=== PATIENT | male | born 1940 | race Caucasian/White ===

== ENCOUNTER 2017-03-05 10:20 | Emergency (ER) | payer MEDICARE ==
--- NOTE | 2017-03-05 10:59 | UC ---
Skin Complaint HPI - HPI Summary HPI Summary: on coumadin ---ran in to the corner of a wall and got a bruise on left upper arm.now bruise in spreading down arm and is greenish in color---last INR 03/02 was 2.3 not currently or recently on antibiotics - History of Current Complaint Chief Complaint: UCSkin Time Seen by Provider: 03/05/17 10:53 Stated Complaint: BRUISE ON ARM Hx Obtained From: Patient Onset/Duration: Sudden Onset, Lasting Days - 3, Still Present Timing: Constant Onset Severity: Mild Current Severity: None Location: Discrete - left upper arm Aggravating: Nothing Alleviating: Nothing Associated Signs & Symptoms: Positive: Negative - Allergy/Home Medications Allergies/Adverse Reactions: Allergies Allergy/AdvReac Type Severity Reaction Status Date / Time Fentanyl AdvReac Intermediate GI Upset Verified 03/05/17 10:59 Midazolam [From Versed] AdvReac Intermediate GI Upset Verified 03/05/17 10:59 [facility] - NO MRI s Allergy NO MRIs - Uncoded 03/05/17 10:59 UNSAFE Home Medications: Home Medications Aspirin 81 mg PO 03/05/17 [History] Atorvastatin* [Lipitor*] 10 mg PO 1700 03/05/17 [History Confirmed 03/05/17] Review of Systems Constitutional: Negative Skin: Bruising - resolving bruise left upper arm---anterior Eyes: Negative ENT: Negative Respiratory: Negative Cardiovascular: Negative Gastrointestinal: Negative Genitourinary: Negative Motor: Negative Neurovascular: Negative Musculoskeletal: Negative Neurological: Negative Psychological: Negative All Other Systems Reviewed And Are Negative: Yes PMH/Surg Hx/FS Hx/Imm Hx Previously Healthy: No Endocrine History: Dyslipidemia Cardiovascular History: Cardiac Disease, Pacemaker/ICD, Myocardial Infarction - Surgical History Surgical History: Yes - Family History Known Family History: Positive: None Family History: no reported cardiovascular issues in family lineage - Social History Occupation: Retired Lives: With Family Alcohol Use: None Substance Use Type: None Smoking Status (MU): Never Smoked Tobacco Physical Exam Triage Information Reviewed: Yes Appearance: Well-Appearing, No Pain Distress, Well-Nourished Vital Signs Reviewed: Yes Eye Exam: Normal Eyes: Positive: Conjunctiva Clear ENT Exam: Normal ENT: Positive: Normal ENT inspection, Hearing grossly normal, Pharynx normal, TMs normal. Negative: Nasal congestion, Nasal drainage, Trismus, Muffled/ hoarse voice Dental Exam: Normal Neck exam: Normal Neck: Positive: Supple, Nontender Respiratory Exam: Normal Respiratory: Positive: Chest non-tender, Lungs clear, Normal breath sounds, No respiratory distress, No accessory muscle use Cardiovascular Exam: Normal Cardiovascular: Positive: RRR, Pulses Normal, Brisk Capillary Refill Abdominal Exam: Normal Musculoskeletal Exam: Normal Musculoskeletal: Positive: Strength Intact, ROM Intact, No Edema Neurological Exam: Normal Neurological: Positive: Alert, Muscle Tone Normal Psychological Exam: Normal Skin Exam: Normal Skin: Positive: Other - bruising anterior upper left arm Course/Dx - Course Course Of Treatment: follow with MD as planned - Differential Diagnoses - Skin Complaint Differential Diagnoses: Abscess, Cellulitis, Other - bruising - Diagnoses Provider Diagnoses: Bruising left upper arm Discharge - Discharge Plan Condition: Stable Disposition: HOME Patient Education Materials: Contusion in Adults (ED) Referrals: Brenden Hernandez MD [Primary Care Provider] - (for routine PT/INR check)
[2017-03-05 11:05] VITALS: BP 112/75
== END 2017-03-05 11:10 | disposition home or self-care (01) ==
LOC: UCEAST 10:20
DX: S40.022A Contusion of left upper arm, initial encounter (principal); W22.01XA Walked into wall, initial encounter; Y93.9 Activity, unspecified; Y92.9 Unspecified place or not applicable; Y99.9 Unspecified external cause status; Z79.01 Long term (current) use of anticoagulants; Z95.0 Presence of cardiac pacemaker; I51.9 Heart disease, unspecified; I25.2 Old myocardial infarction
CPT/HCPCS: 99211; G0463

== ENCOUNTER 2017-03-14 10:42 | Emergency (ER) | payer MEDICARE ==
[2017-03-14] MEDS ORDERED: NS 0.9% 1000 ML* 2,000 ML IV ONE (10:58)
[2017-03-14] MEDS ORDERED: Ondansetron INJ* 2 MG/ML VIAL IV ONE (10:58)
[2017-03-14] MEDS ORDERED: Meclizine TAB* 12.5 MG PO ONE (10:58)
[2017-03-14 11:34] LABS: Hematocrit 48 % (42-52); Hemoglobin 16.2 g/dl (14.0-18.0); Mean Corpuscular HGB Conc 34 g/dl (31-36); Mean Corpuscular Hemoglobin 33 pg (27-31); Mean Corpuscular Volume 98 fL (80-94); Mean Platelet Volume 8 um3 (7.4-10.4); Red Blood Count 4.87 10^6/ul (4.0-5.4); Red Cell Distribution Width 13 % (10.5-15); White Blood Count 9.9 10^3/ul (3.5-10.8)
[2017-03-14 11:46] LABS: Albumin 3.7 g/dL (3.2-5.2); BUN/Creatinine Ratio 19.7 (8-20); C Reactive Protein 3.84 mg/L (< 5.00); Calcium 9.2 mg/dL (8.6-10.3); EGFR African American 138.7 (>60); EGFR Non-African American 107.9 (>60); Globulin 2.5 g/dL (2-4); Magnesium 1.7 mg/dL (1.9-2.7); Potassium 3.9 mmol/L (3.5-5.0); Total Bilirubin 2.5 mg/dL (0.2-1.0); Total Protein 6.2 g/dL (6.4-8.9)
[2017-03-14 11:51] LABS: Urine Bilirubin Negative (Negative); Urine Glucose Negative (Negative); Urine Nitrite Negative (Negative)
[2017-03-14 12:12] LABS: TSH (Thyroid Stimulating Horm) 2.64 mcIU/mL (0.34-5.60)
--- NOTE | 2017-03-14 12:15 | RAD ---
Indication: Vertigo. CT of the brain was performed without IV contrast. Ventricular structures are midline. No midline shift is noted. Central and cortical atrophy is noted. There is no evidence of intracranial mass or hemorrhage. No other high or low density lesions are identified. Mastoid air cells and paranasal sinuses are otherwise unremarkable. IMPRESSION: No intracranial mass or hemorrhage is noted.
[2017-03-14 12:18] LABS: Digoxin 0.6 ng/ml (0.8-2.0)
--- NOTE | 2017-03-14 13:22 | RAD ---
INDICATION: Dizziness COMPARISON: January 20, 2015 TECHNIQUE: An AP portable view obtained at 1154 hours is submitted. FINDINGS: Bones/Soft Tissues: There are no acute bony findings. There is interval sternotomy. There is left-sided cardiac pacemaker with revision. Cardiomediastinal: The cardiomediastinal silhouette is normal. Lungs: There are no infiltrates. Pleura: There are no pleural effusions. Other: None IMPRESSION: NO ACTIVE DISEASE.
[2017-03-14 13:27] LABS: Troponin I 0.01 ng/mL (<0.04)
--- NOTE | 2017-03-14 14:51 | ED ---
Eric Douglas Angela, scribed for Dameon Acosta MD on 03/14/17 at 1052 . Dizziness - HPI Summary HPI Summary: Pt is a 76 y/o M BIBA who presents to ED c/o dizziness. Sx began at 0400 this morning and has been constant and worsening since onset. Dizziness characterized as room spinning, aggravated by turning to the left side and sitting up, alleviated by laying flat. Additionally c/o nausea and decreased appetite secondary to nausea. Denies vomiting, CP, SOB, KAPLAN, weakness, numbness, ear pain, rhinorrhea and abd pain. Confirms good fluid intake. Pt presents to ED today as sx have not improved. Takes Coumadin and 81 mg ASA. PMHx vertigo. - History Of Current Complaint Chief Complaint: EDDizziness Stated Complaint: DIZZINESS Hx Obtained From: Patient, EMS Onset/Duration: Still Present Timing: Constant Character: Room Spinning Aggravating Factor(s): Position Change - Sitting up, Other - Turning to the left side Alleviating Factor(s): Lying Down Associated Signs And Symptoms: Positive: Nausea. Negative: Vomiting, Chest Pain , SOB - Allergies/Home Medications Allergies/Adverse Reactions: Allergies Allergy/AdvReac Type Severity Reaction Status Date / Time Fentanyl AdvReac Intermediate GI Upset Verified 03/05/17 10:59 Midazolam [From Versed] AdvReac Intermediate GI Upset Verified 03/05/17 10:59 [facility] - NO MRI s Allergy NO MRIs - Uncoded 03/05/17 10:59 UNSAFE Home Medications: Home Medications Digoxin TAB* [Lanoxin TAB*] 0.125 mg PO DAILY 03/14/17 [History Confirmed ] Magnesium Oxide TAB* [MagOx 400 TAB*] 250 mg PO DAILY 03/14/17 [History Confirmed 03/14/17] PMH/Surg Hx/FS Hx/Imm Hx Cardiovascular History: Reports: Hx Atrial Fibrillation, Hx Hypertension, Hx Pacemaker/ICD - [facility] - NO MRIs Neurological History: Reports: Other Neuro Impairments/Disorders - Vertigo - Surgical History Surgery Procedure, Year, and Place: Mitral valve repair Infectious Disease History: No Infectious Disease History: Denies: Traveled Outside the [place] in Last 30 Days - Family History Known Family History: Negative: Cardiac Disease Family History: no reported cardiovascular issues in family lineage - Social History Alcohol Use: None Substance Use Type: Reports: None Smoking Status (MU): Never Smoked Tobacco Review of Systems Negative: Ear Ache, Nasal Discharge Negative: Chest Pain Negative: Shortness Of Breath Positive: Nausea, Other - Decreased appetite secondary to nausea. Negative: Abdominal Pain, Vomiting Neurological: Other - POSITIVE: Dizziness Negative: Headache, Weakness, Numbness All Other Systems Reviewed And Are Negative: Yes Physical Exam - Summary Physical Exam Summary: General: well-appearing, no pain distress Skin: warm, color reflects adequate perfusion, dry Head: normal Eyes: EOMI, LALY, lateral nystagmus ENT: Cerumen impaction in the R ear Neck: supple, nontender Respiratory: CTA, breath sounds present Cardiovascular: RRR Abdomen: soft, nontender Bowel: present Musculoskeletal: normal, strength/ROM intact Neurological: normal, sensory/motor intact, A&O x3 Psychological: affect/mood appropriate GCS: 15 Triage Information Reviewed: Yes Vital Signs On Initial Exam: Temperature: 97.6 Pulse rate: 81 Blood pressure: 149/90 Vital Signs Reviewed: Yes Diagnostics - Vital Signs Vital Signs Temp Pulse Resp BP Pulse Ox 03/14/17 14:00 81 162/79 97 03/14/17 13:30 86 159/94 99 03/14/17 13:00 83 22 149/97 100 03/14/17 12:54 84 22 145/94 100 03/14/17 12:00 84 18 99 03/14/17 11:30 88 22 151/84 98 03/14/17 11:29 89 160/86 03/14/17 11:27 92 23 160/86 98 03/14/17 11:25 83 20 165/100 99 03/14/17 11:00 82 19 142/93 99 03/14/17 10:50 97.6 F 82 18 149/90 98 03/14/17 10:48 149/90 - Laboratory Lab Results: Lab Results 03/14/17 03/14/17 03/14/17 Range/Units 11:11 11:11 11:11 WBC 9.9 (3.5-10.8) 10^3/ul RBC 4.87 (4.0-5.4) 10^6/ul Hgb 16.2 (14.0-18.0) g/dl Hct 48 (42-52) % MCV 98 H (80-94) fL MCH 33 H (27-31) pg MCHC 34 (31-36) g/dl RDW 13 (10.5-15) % Plt Count 178 (150-450) 10^3/ul MPV 8 (7.4-10.4) um3 Neut % (Auto) 86.9 H (38-83) % Lymph % (Auto) 5.6 L (25-47) % [place] % (Auto) 6.0 (1-9) % Eos % (Auto) 0.3 (0-6) % Baso % (Auto) 1.2 (0-2) % Absolute Neuts (auto) 8.6 H (1.5-7.7) 10^3/ul Absolute Lymphs (auto) 0.6 L (1.0-4.8) 10^3/ul Absolute Monos (auto) 0.6 (0-0.8) 10^3/ul Absolute Eos (auto) 0 (0-0.6) 10^3/ul Absolute Basos (auto) 0.1 (0-0.2) 10^3/ul Absolute Nucleated RBC 0 10^3/ul Nucleated RBC % 0 INR (Anticoag Therapy) 1.80 H (0.89-1.11) APTT 37.5 H (26.0-36.3) seconds Sodium (133-145) mmol/L Potassium (3.5-5.0) mmol/L Chloride (101-111) mmol/L Carbon Dioxide (22-32) mmol/L Anion Gap (2-11) mmol/L BUN (6-24) mg/dL Creatinine (0.67-1.17) mg/dL Est GFR ( Amer) (>60) Est GFR (Non-Af Amer) (>60) BUN/Creatinine Ratio (8-20) Glucose (70-100) mg/dL Lactic Acid (0.5-2.0) mmol/L Calcium (8.6-10.3) mg/dL Magnesium (1.9-2.7) mg/dL Total Bilirubin (0.2-1.0) mg/dL AST (13-39) U/L ALT (7-52) U/L Alkaline Phosphatase (34-104) U/L Troponin I (<0.04) ng/mL C-Reactive Protein (< 5.00) mg/L B-Natriuretic Peptide 300 H ( - 100) pg/mL Total Protein (6.4-8.9) g/dL Albumin (3.2-5.2) g/dL Globulin (2-4) g/dL Albumin/Globulin Ratio (1-3) Lipase (11.0-82.0) U/L TSH (0.34-5.60) mcIU/mL Urine Color Urine Appearance Urine pH (5-9) Ur Specific [place] (1.010-1.030) Urine Protein (Negative) Urine Ketones (Negative) Urine Blood (Negative) Urine Nitrate (Negative) Urine Bilirubin (Negative) Urine Urobilinogen (Negative) Ur Leukocyte Esterase (Negative) Urine Glucose (Negative) Digoxin (0.8-2.0) ng/ml 03/14/17 03/14/17 03/14/17 Range/Units 11:11 11:11 11:40 WBC (3.5-10.8) 10^3/ul RBC (4.0-5.4) 10^6/ul Hgb (14.0-18.0) g/dl Hct (42-52) % MCV (80-94) fL MCH (27-31) pg MCHC (31-36) g/dl RDW (10.5-15) % Plt Count (150-450) 10^3/ul MPV (7.4-10.4) um3 Neut % (Auto) (38-83) % Lymph % (Auto) (25-47) % [place] % (Auto) (1-9) % Eos % (Auto) (0-6) % Baso % (Auto) (0-2) % Absolute Neuts (auto) (1.5-7.7) 10^3/ul Absolute Lymphs (auto) (1.0-4.8) 10^3/ul Absolute Monos (auto) (0-0.8) 10^3/ul Absolute Eos (auto) (0-0.6) 10^3/ul Absolute Basos (auto) (0-0.2) 10^3/ul Absolute Nucleated RBC 10^3/ul Nucleated RBC % INR (Anticoag Therapy) (0.89-1.11) APTT (26.0-36.3) seconds Sodium 135 (133-145) mmol/L Potassium 3.9 (3.5-5.0) mmol/L Chloride 105 (101-111) mmol/L Carbon Dioxide 19 L (22-32) mmol/L Anion Gap 11 (2-11) mmol/L BUN 14 (6-24) mg/dL Creatinine 0.71 (0.67-1.17) mg/dL Est GFR ( Amer) 138.7 (>60) Est GFR (Non-Af Amer) 107.9 (>60) BUN/Creatinine Ratio 19.7 (8-20) Glucose 122 H (70-100) mg/dL Lactic Acid 1.8 (0.5-2.0) mmol/L Calcium 9.2 (8.6-10.3) mg/dL Magnesium 1.7 L (1.9-2.7) mg/dL Total Bilirubin 2.50 H (0.2-1.0) mg/dL AST 19 (13-39) U/L ALT 22 (7-52) U/L Alkaline Phosphatase 62 (34-104) U/L Troponin I 0.01 (<0.04) ng/mL C-Reactive Protein 3.84 (< 5.00) mg/L B-Natriuretic Peptide ( - 100) pg/mL Total Protein 6.2 L (6.4-8.9) g/dL Albumin 3.7 (3.2-5.2) g/dL Globulin 2.5 (2-4) g/dL Albumin/Globulin Ratio 1.5 (1-3) Lipase 10 L (11.0-82.0) U/L TSH 2.64 (0.34-5.60) mcIU/mL Urine Color Yellow Urine Appearance Clear Urine pH 6.0 (5-9) Ur Specific [place] 1.012 (1.010-1.030) Urine Protein Negative (Negative) Urine Ketones 1+ H (Negative) Urine Blood Negative (Negative) Urine Nitrate Negative (Negative) Urine Bilirubin Negative (Negative) Urine Urobilinogen Negative (Negative) Ur Leukocyte Esterase Negative (Negative) Urine Glucose Negative (Negative) Digoxin 0.6 L (0.8-2.0) ng/ml Result Diagrams: 03/14/17 11:11 03/14/17 11:11 Lab Statement: Any lab studies that have been ordered have been reviewed, and results considered in the medical decision making process. - Radiology Chest XR Xray Interpretation: No Acute Changes - IMPRESSION: NO ACTIVE DISEASE Radiology Interpretation Completed By: Radiologist - CT Brain CT CT Interpretation: No Acute Changes - IMPRESSION: No intracranial mass or hemorrhage is noted. CT Interpretation Completed By: Radiologist - EKG 1053 Cardiac Rate: NL - 85 bpm EKG Interpretation: Ventricular pace at 85 bpm, no STEMI Re-Evaluation - Re-Evaluation First Eval Re-Evaluation Time: 13:29 Comment: Discussed the radiology results with the pt. Second Eval Re-Evaluation Time: 13:54 Change: Improved - Pt's symptoms have improved but he is still feeling dizzy. Nurses will check his ambulation. Dizzy Course/Dx - Course Course Of Treatment: DISCUSSED WITH DR SULLIVAN. HEAD CT NORMAL WITH SX STARTING MORE THAN 24 HOURS AGO MAKING CVA UNLIKELY. SX IMPROVED IN ED WITH MECLIZINE AND IVF. AMBLE TO AMBULATE AT DISCHARGE. SX INITIALLY WORSE WITH HEAD MOVEMENT. DISCUSSED RESULTS WITH PATIENT/. THEY FEEL COMFORTABLE GOING HOME WITH PO MECLIZINE AND PMD F/U; RETURN TO ED IF WORSE. - Diagnoses Provider Diagnoses: Vertigo, Dizziness - Provider Notifications Discussed Care Of Patient With: Moo Sullivan Time Discussed With Above Provider: 12:19 Instructed by Provider To: Other - He stated that a CT is ok. Discharge - Discharge Plan Condition: Stable Disposition: HOME Prescriptions: Meclizine HCl [Meclizine 25] 25 mg PO Q6HR PRN #15 tab PRN Reason: Dizziness Patient Education Materials: Vertigo (ED), Dizziness (ED) Referrals: Brenden Hernandez MD [Primary Care Provider] - Additional Instructions: FOLLOW UP WITH YOUR DOCTOR. TAKE MECLIZINE 25MG EVERY 6 HOURS NEEDED FOR DIZZINESS. RETURN TO THE EMERGENCY DEPARTMENT FOR ANY WORSENING OF YOUR CONDITION; CONTINUED DIZZINESS, WEAKNESS, NUMBNESS, DIFFICULTY WITH VISION OR SPEECH, YOU FEEL ILL OR QUESTIONS OR CONCERNS. The documentation as recorded by the Eric cooley Angela accurately reflects the service I personally performed and the decisions made by me, Dameon Acosta MD.
[2017-03-14 15:06] VITALS: BP 160/89
== END 2017-03-14 15:05 | disposition home or self-care (01) ==
LOC: ED 10:42
DX: R42 Dizziness and giddiness (principal)
CPT/HCPCS: 36415; 70450; 71010; 80053; 80162; 81003; 83605; 83690; 83735; 83880; 84443; 84484; 85025; 85610; 85730; 86140; 93005; 99284; A9270-GY; J2405

== ENCOUNTER 2018-06-14 10:32 | Emergency (ER) | payer MEDICARE ==
--- NOTE | 2018-06-14 12:14 | UC ---
Laceration HPI - HPI Summary HPI Summary: 78 y/o male presents to the urgent care c/o cut left thumb with a knife in the kitchen - History Of Current Complaint Chief Complaint: UCLaceration Stated Complaint: hand injury Time Seen by Provider: 06/14/18 12:13 Hx Obtained From: Patient Laceration Location: Finger - left thumb Mechanism Of Injury: Sharp Trauma - avulse tip of the left thumb Onset/Duration: Sudden Onset - yesterday afternoon around 1800PM, Still Present Severity: Mild Pain Intensity: 1 - at touch Pain Scale Used: 0-10 Numeric Aggravating Factors: Nothing - Allergies/Home Medications Allergies/Adverse Reactions: Allergies Allergy/AdvReac Type Severity Reaction Status Date / Time fentanyl Allergy GI Upset Verified 12/27/17 13:19 midazolam [From Versed] Allergy GI Upset Verified 12/27/17 13:19 [facility] - NO MRI s Allergy NO MRIs - Uncoded 03/05/17 10:59 UNSAFE Home Medications: Home Medications Latanoprost/Pf [Latanoprost 0.005% Eye Drop] 1 % BOTH EYES DAILY 06/14/18 [ History Confirmed 06/14/18] PMH/Surg Hx/FS Hx/Imm Hx Previously Healthy: Yes Endocrine History: Dyslipidemia Cardiovascular History: Hypertension, Atrial Fibrillation Other Cardiovascular History: MV repair - Surgical History Surgical History: Yes Surgery Procedure, Year, and Place: Mitral valve repair - Family History Known Family History: Positive: Cardiac Disease Family History: no reported cardiovascular issues in family lineage - Social History Occupation: Retired Lives: With Family Alcohol Use: None Substance Use Type: None Smoking Status (MU): Never Smoked Tobacco - Immunization History Hx Tetanus, Diphtheria Vaccination: No - unsure Review of Systems All Other Systems Reviewed And Are Negative: Yes Constitutional: Positive: Negative Skin: Positive: Other - avulse laceration over the tip of left thumb Eyes: Positive: Negative ENT: Positive: Negative Respiratory: Positive: Negative Cardiovascular: Positive: Negative Gastrointestinal: Positive: Negative Genitourinary: Positive: Negative Motor: Positive: Negative Neurovascular: Positive: Negative Musculoskeletal: Positive: Other: - left thumb pain s/p laceration Neurological: Positive: Negative Psychological: Positive: Negative Is Patient Immunocompromised?: No Physical Exam - Summary Physical Exam Summary: Vital Signs Reviewed: Yes General: well developed, well nourished male sitting in the examining table w/o any apparent distress Eye Exam: Normal Eyes: Positive: Conjunctiva Clear - PERRLA, EOMI, fundi grossly normal ENT: Positive: Normal ENT inspection, Hearing grossly normal, Pharynx normal, TMs normal Neck: Positive: Supple, Nontender, No Lymphadenopathy Respiratory: Positive: Chest non-tender, Lungs clear, Normal breath sounds, No respiratory distress Cardiovascular: Positive: RRR, No Murmur, Pulses Normal, Brisk Capillary Refill Abdomen Description: Positive: Nontender, No Organomegaly, Soft. Negative: CVA Tenderness (R), CVA Tenderness (L) Bowel Sounds: Positive: Present Musculoskeletal: Positive: Strength Intact, ROM Intact, No Edema Neurological: Positive: Alert, Muscle Tone Normal Psychological Exam: Normal Skin: Positive:tip of left first phalanx with an avulse superficial laceration about 0.9cm in size, no bleeding, no foreign body observed. mild tenderness to palpation,. FROM of LF thumb, sensation intact, capillary refill brisk, and pulses WNL. Triage Information Reviewed: Yes Vital Signs: Initial Vital Signs Temp 97 F 06/14/18 10:38 Pulse 86 06/14/18 10:38 Resp 16 06/14/18 10:38 BP 126/61 06/14/18 10:38 Pulse Ox 100 06/14/18 10:38 Laceration Repair - Laceration Repair 1 Description: Irregular - semilunar avulsed superficial laceration Laceration Size After Repair: Length (cm) - 0.9 Modified For Repair: No Cleansing Completed Via Routine Prep: Yes Irrigation With Pressure Irrigation Device: Yes Closure Material: Skin Adhesive - gel foam applied Closure Method: Single Layer Suture Of: Skin Laceration Course/Dx - Course/Dx Course Of Treatment: Pt w/ tip of left first phalanx with an avulse superficial laceration about 0.9cm in size, no bleeding on examination. LACERATION PROCEDURE NOTE: Copious irrigation was done with saline and the wound cleaned and explored. There was no FB or deep structure injury noted. Wounds cleaned saline water and then w/ Iodine swabs. Abrasion cleaned w/ sterile water and bacitracin oint applied over and then cover w/ non adhesive gauze . The skin avulsion were covered w/ Gel foam and then covered w/ sterile gauze. #4th and 5th finger immobilized and body tape together. The Pt tolerated the procedure well without adverse effects. Neurovascular intact and FROM of finger. Tdap ordered and applied by nurse. Pt Rx Bacitracin ointment and Ibuprofen PO to alleviate symptoms. Pt advised if any signs of infection develop to immediately return to the urgent care of PCP for further management and treatment. Pt understood and agreed and left the clinic ambulating A&Ox3. - Differential Dx - Laceration/Wound Differental Diagnoses: Abrasion, Avulsion, Cellulitis, Laceration, Puncture Wound, Tendon Laceration Provider Diagnoses: 1- Left thumb avulse laceration repair Discharge - Sign-Out/Discharge Documenting (check all that apply): Patient Departure - D/C home All imaging exams completed and their final reports reviewed: No Studies - Discharge Plan Condition: Stable Disposition: HOME Patient Education Materials: Laceration (ED), Acute Wound Care (ED) Referrals: Brenden Hernandez MD [Primary Care Provider] - 1 Week Additional Instructions: 1-Please keep Gelfoam in placed, . Keep wound clean and dry. Change dressing 2- You were given Tdap today.. 3-Take Ibuprofen or Tylenol PO q6-8hrs prn for pain or swelling. 4- If you develop fever or redness around your thumb please return to the Urgent care or PCP for further management - Billing Disposition and Condition Condition: STABLE Disposition: Home
[2018-06-14] MEDS ORDERED: Gelfoam 12-7 ADSORBABL SPONGE* 1 EA SPONGE TOPICAL ONE (12:46)
[2018-06-14] MEDS ORDERED: Tetan/Diph/Pertus SYR(Tdap)* 0.5 ML SYR(BOOSTRIX) use SYR IM ONE (12:47)
[2018-06-14] MEDS ORDERED: Gelfoam 12-7 ADSORBABL SPONGE* 1 EA SPONGE ONE (12:48)
[2018-06-14 13:04] VITALS: BP 138/93
== END 2018-06-14 13:08 | disposition home or self-care (01) ==
LOC: UCEAST 10:32
DX: S61.012A Laceration without foreign body of left thumb without damage to nail, initial encounter (principal); I10 Essential (primary) hypertension; Z88.4 Allergy status to anesthetic agent; Z91.048 Other nonmedicinal substance allergy status; W26.0XXA Contact with knife, initial encounter; Y92.89 Other specified places as the place of occurrence of the external cause
CPT/HCPCS: 90471; 90715; 99212; A9270-GY; G0463

== ENCOUNTER 2019-02-25 19:39 | Emergency (ER) | payer MEDICARE ==
--- NOTE | 2019-02-25 21:32 | ED ---
Lower Extremity - HPI Summary HPI Summary: Pt is a 78 y/o M presenting to the ED with a chief complaint of knee pain onset about 2 days ago. It initially started around 0000 on 02/24/19. He states on the morning of 02/25/19, at 0030, he felt a pain in his L knee that he described as an ache, and it did not go away throughout the day. He denies CP or SOB. - History of Current Complaint Chief Complaint: EDExtremityLower Stated Complaint: KNEE PAIN PER PT Time Seen by Provider: 02/25/19 20:31 Hx Obtained From: Patient Mechanism Of Injury: Unknown Onset of Pain: Days Onset/Duration: Days Severity Initially: Mild Severity Currently: Mild Pain Intensity: 2 Pain Scale Used: 0-10 Numeric Timing: Intermittent, Lasting Hours Location: Is Discrete @ - L knee Character Of Pain: Aching Associated Signs And Symptoms: Positive: Knee Pain Aggravating Factor(s): Movement Alleviating Factor(s): Nothing Able to Bear Weight: Yes - Allergies/Home Medications Allergies/Adverse Reactions: Allergies Allergy/AdvReac Type Severity Reaction Status Date / Time fentanyl Allergy GI Upset Verified 02/25/19 19:43 midazolam [From Versed] Allergy GI Upset Verified 02/25/19 19:43 [facility] - NO MRI s Allergy NO MRIs - Uncoded 02/25/19 19:43 UNSAFE Home Medications: Home Medications Metoprolol Succinate [Metoprolol Succinate ER] 12.5 mg PO BID 02/25/19 [History Confirmed 02/25/19] PMH/Surg Hx/FS Hx/Imm Hx Previously Healthy: Yes Endocrine/Hematology History: Denies: Hx Diabetes Cardiovascular History: Reports: Hx Atrial Fibrillation, Hx Hypertension, Hx Pacemaker/ICD - [facility] - NO MRIs, Other Cardiovascular Problems/Disorders - TACHYCARDIA History: Denies: Hx Dialysis, Hx Renal Disease Neurological History: Reports: Other Neuro Impairments/Disorders - Vertigo - Surgical History Surgery Procedure, Year, and Place: Mitral valve repair Infectious Disease History: No Infectious Disease History: Denies: Traveled Outside the [place] in Last 30 Days - Family History Known Family History: Negative: Cardiac Disease - Social History Alcohol Use: None Hx Substance Use: No Substance Use Type: Reports: None Hx Tobacco Use: No Smoking Status (MU): Never Smoked Tobacco Review of Systems Negative: Chest Pain Negative: Shortness Of Breath Positive: Arthralgia - knee pain All Other Systems Reviewed And Are Negative: Yes Physical Exam - Summary Physical Exam Summary: General: Well appearing, no distress Cardiovascular: Skin is well perfused Pulmonary: No respiratory distress, no tachypnea Abdomen: Non-distended MSK: LLE: no deformity effusions, soft tissue swelling or discoloration, no crepitus palpated, compartments soft and compressible SILT 2+ DP, brisk cap refill x 5 Hip: no ttp, Knee: no ttp, mild pain with ambulation, no lig laxity Ankle: no ttp, FROM without pain, no instability Toes: no ttp, FROM without pain No midline CT or L tenderness No SI joint tenderness Skin: Warm, pink, dry Psych: Normal affect Neuro: A&Ox3 Triage Information Reviewed: Yes Vital Signs On Initial Exam: Initial Vitals Temp Pulse Resp BP Pulse Ox 99.4 F 90 16 143/96 96 02/25/19 19:40 02/25/19 19:40 02/25/19 19:40 02/25/19 19:40 02/25/19 19:40 Vital Signs Reviewed: Yes Diagnostics - Vital Signs Vital Signs Temp Pulse Resp BP Pulse Ox 02/25/19 19:40 99.4 F 90 16 143/96 96 - Laboratory Lab Statement: Any lab studies that have been ordered have been reviewed, and results considered in the medical decision making process. Lower Extremity Course/Dx - Course Course Of Treatment: 70-year-old male that H med left knee pain for 3 days. - No signs of infection such as erythema of the joint, fevers or chills or pain with active range of motion. No trauma by history. Therefore suspect pain secondary to musculoskeletal strain or pinched nerve. Discussed with patient we could try symptom control with Tylenol home, lidocaine patch here, and Flexeril at night as needed for muscle pain. Patient agreeable and will try these medications, and will return to the emergency department or his primary care and he continues to have pain in the next few days. Ambulated here with a steady gait. - Diagnoses Provider Diagnoses: Knee pain Discharge - Sign-Out/Discharge Documenting (check all that apply): Patient Departure Patient Received Moderate/Deep Sedation with Procedure: No - Discharge Plan Condition: Stable Disposition: HOME Patient Education Materials: Knee Pain (ED) Referrals: Brenden Hernandez MD [Primary Care Provider] - Additional Instructions: You can take 500 mg of Tylenol as needed every 8 hours for pain please take no more than 4 g of Tylenol per day. You can take Flexeril at night as needed for muscle pain. This may make you drowsy please do not drive or operate machinery while taking this medication Follow up with your primary care provider within the next few days. Return to the emergency department if the pain persists, or with any new or worsening symptoms. - Billing Disposition and Condition Condition: STABLE Disposition: Home - Attestation Statements Document Initiated by Dolores: Yes Documenting Scribe: Ambreen Vargas Provider For Whom Dolores is Documenting (Include Credential): Beck Aaron MD. Scribe Attestation: IAmbreen, scribed for Beck Aaron MD. on 02/25/19 at 2203. Scribe Documentation Reviewed: Yes Provider Attestation: The documentation as recorded by the scribe, Ambreen Vargas accurately reflects the service I personally performed and the decisions made by , Beck Aaron MD. Status of Scribe Document: Viewed
[2019-02-25 22:15] VITALS: BP 142/82
[2019-02-26] MEDS ORDERED: Lidocaine PATCH 5%* 1 PATCH TRANSDERM SCH (09:00)
[2019-02-26] MEDS ORDERED: Lidocaine Patch REMOVE* 1 NOTE MISC SCH (21:00)
== END 2019-02-25 22:14 | disposition home or self-care (01) ==
LOC: ED 19:39
DX: M25.562 Pain in left knee (principal); Z88.5 Allergy status to narcotic agent; Z88.8 Allergy status to other drugs, medicaments and biological substances; I48.91 Unspecified atrial fibrillation; I10 Essential (primary) hypertension; Z95.0 Presence of cardiac pacemaker
CPT/HCPCS: 99282; A9270-GY